=== PATIENT | female | born 1985 | race Caucasian/White ===

== ENCOUNTER 2019-09-13 07:07 | Day surgery (SDC) | payer BC ==
[2019-09-13 07:57] LABS: Absolute Lymphocytes (CBC) 2.3 K/uL (0.7-4.9); Basophils % 0.8 % (0-1.3); Hematocrit 41.8 % (36.0-45.0); Lymphocytes % 21.2 % (15.3-44.8); MPV 9.4 fL (7.6-11.3)
[2019-09-13] MEDS ORDERED: Ringers Lactate 1,000 ML IV ONE (07:58)
[2019-09-13] MEDS ORDERED: CEFAZOLIN/SWI 1gm 1 GM/10 ML SYR ONE (07:59)
[2019-09-13] MEDS ORDERED: BUPIVACAINE 0.5% PF 10 ML VIAL ONE (08:08)
--- NOTE | 2019-09-13 09:29 | RAD REPORT ---
EXAM DESCRIPTION: US - BREAST/AXILLA, LIMITED - 09/13/2019 8:29 am CLINICAL HISTORY: Breast pain, right breast abscess, pre-surgical localization COMPARISON: None FINDINGS: Limited right breast sonography was performed. Exam was performed to willy the skin surface overlying the right breast abscess. Examination spanned the upper right breast. Examination showed extensive hypoechoic tissues throughou t the upper right breast. This band the 10 o'clock- 2 o'clock region of the upper right breast. Infer ior extent was at the level of the nipple with the superior extent 6-8 cm superiorly. Outer margins o f the infectious/inflammatory breast changes were noted. In the 1- 2 o'clock position skin was marked noting areas of small abscess that extended to the skin surface. Findings and skin marking procedure discussed with the referring physician prior to surgery. IMPRESSION: Limited right breast sonographic evaluation for skin marking of breast abscess drainage.
[2019-09-13] MEDS ORDERED: LIDOCAINE 2% MPF 5 ML VIAL ONE (10:04)
[2019-09-13] MEDS ORDERED: MIDAZOLAM HCL 2 MG/2 ML INJ ONE (10:04)
[2019-09-13] MEDS ORDERED: dexAMETHasone 10 MG/ML VIAL ONE (10:04)
[2019-09-13] MEDS ORDERED: propofoL 200 MG/20 ML VIAL IV ONE (10:04)
[2019-09-13] MEDS ORDERED: ONDANSETRON 4 MG/2 ML VIAL ONE (10:04)
[2019-09-13] MEDS ORDERED: FENTANYL CITR 100 MCG/2 ML ONE (10:04)
[2019-09-13 13:14] VITALS: BP 132/77; TEMP 96.4; O2SAT 98
--- NOTE | 2019-09-13 22:19 | OP ---
Date of Procedure: 09/13/2019 Surgeon: Doug Mahajan MD Preoperative Diagnosis: Right breast abscess x2. Postoperative Diagnosis: Right breast abscess x2 with hard indurated area on the right breast. Procedure Performed: Incision and drainage and debridement right breast abscess x2. An excisional b iopsy of the right breast mass with frozen section. Estimated Blood Loss: Minimal. Specimen: Culture and sensitivity of the fluid and biopsy of the hard mass frozen section revealed i nflammatory tissue. No evidence of carcinoma. Finding: As above. Anesthesia: General. Complications: None. Disposition: Patient tolerated the procedure, was in stable condition and taken to Recovery in good general condition. Procedure In Detail: Patient was brought to the OR and placed in supine position. General anesthesi a was begun. Patient was prepped and draped in usual sterile fashion. Patient had been preoperative ly marked by ultrasound and 2 areas where there were suspected fluid. Marcaine 0.5% was infiltrated l ocally and then 15-blade was used to make a 2.5 cm incision on both areas where the abscess was suspe cted. I went deep down into that area. I was not able to identify any purulence. There was some se salvador fluid present. The surrounding tissue was very hard, did an incisional biopsy. A 1 cm mass was removed and sent to Pathology for frozen section, which revealed inflammatory tissue. No evidence o f carcinoma. Wound irrigated. Bleeding controlled with cautery and then the skin was loosely closed w ith 4-0 nylon and then sterile dressing was applied. Patient was awakened and taken to Recovery in g ood general condition. Discharge Note: The patient will go to Day Surgery, and home when stable. Disposition: Home. Condition: Stable. Discharge Instructions: Resume home medications and diet. Activity as tolerated. No heavy lifting. Remove outer dressing in 2 days. Shower. Keep wound clean and dry. Follow up in my office in 1 w resighini. Call for appointment. Tylenol No. 3 one tablet p.o. q.4. p.r.n. pain. Augmentin 875 p.o. q.12 . /MODL Voice ID: [id number] Report ID: [id number]
== END 2019-09-13 11:02 | disposition home or self-care (01) ==
LOC: OR 07:07
PROVIDERS: ATTEND Surgery
PROC: 0H9T0ZZ Drainage of Right Breast, Open Approach (ICD-10-PCS; principal; 2019-09-13 09:30)
DX: N61.1 Abscess of the breast and nipple (principal); N63.10 Unspecified lump in the right breast, unspecified quadrant; F17.200 Nicotine dependence, unspecified, uncomplicated; Z80.3 Family history of malignant neoplasm of breast; Z80.49 Family history of malignant neoplasm of other genital organs; Z83.3 Family history of diabetes mellitus; Z82.3 Family history of stroke; Z82.0 Family history of epilepsy and other diseases of the nervous system
CPT/HCPCS: 10061; 87070; 85025; 36415; 87205 ×2; 81025; 88331; 88332; 88305; 87075; 87077; 87186; 76642; J2704; J2250; J3010; J1100; J0690; J7120; J2405

== ENCOUNTER 2020-04-03 16:27 | Emergency (ER) | payer BC ==
--- NOTE | 2020-04-03 16:46 | EDPHYS ---
Physician Documentation [facility] Name: Patricia Fall Age: 34 yrs Sex: Female : 1985 Arrival Date: 04/03/2020 Time: 16:31 Bed 20 Private MD: ED Physician Ayaka Ibarra HPI: 04/03 16:43 This 34 yrs old Female presents to ER via Unassigned with complaints of kb Infection. 16:43 Pt states her boyfriend got diagnosed with a STI today and told her she needed to get kb treatment. Denies any symptoms including vaginal discharge/discomfort or dysuria. . Onset: The symptoms/episode began/occurred today. The patient has not experienced similar symptoms in the past. The patient has not recently seen a physician. - Social history:: Smoking status: . ROS: 16:44 Constitutional: Negative for fever, chills, and weight loss, Cardiovascular: Negative kb for chest pain, palpitations, and edema, Respiratory: Negative for shortness of breath, cough, wheezing, and pleuritic chest pain, Abdomen/GI: Negative for abdominal pain, nausea, vomiting, diarrhea, and constipation, Back: Negative for injury and pain, MS/Extremity: Negative for injury and deformity, Skin: Negative for injury, rash, and discoloration, Neuro: Negative for headache, weakness, numbness, tingling, and seizure. Exam: 16:44 Constitutional: This is a well developed, well nourished patient who is awake, alert, kb and in no acute distress. Head/Face: Normocephalic, atraumatic. Chest/axilla: Normal chest wall appearance and motion. Nontender with no deformity. No lesions are appreciated. Cardiovascular: Regular rate and rhythm with a normal S1 and S2. No gallops, murmurs, or rubs. Normal PMI, no JVD. No pulse deficits. Respiratory: Lungs have equal breath sounds bilaterally, clear to auscultation and percussion. No rales, rhonchi or wheezes noted. No increased work of breathing, no retractions or nasal flaring. Abdomen/GI: Soft, non-tender, with normal bowel sounds. No distension or tympany. No guarding or rebound. No evidence of tenderness throughout. Skin: Warm, dry with normal turgor. Normal color with no rashes, no lesions, and no evidence of cellulitis. MS/ Extremity: Pulses equal, no cyanosis. Neurovascular intact. Full, normal range of motion. Neuro: Awake and alert, GCS 15, oriented to person, place, time, and situation. Cranial nerves II-XII grossly intact. Motor strength 5/5 in all extremities. Sensory grossly intact. Cerebellar exam normal. Normal gait. Vital Signs: 16:43 BP 126 / 84; Pulse 86; Resp 16; Temp 98.1; Pulse Ox 99% ; sv 16:50 BP 124 / 89 LA (/reg); Pulse 76; Pulse Ox 100% on R/A; jp3 MDM: 16:37 Patient medically screened. kb 16:42 Data reviewed: vital signs, nurses notes. Data interpreted: Pulse oximetry: on room air kb is 100 %. Interpretation: normal. Counseling: I had a detailed discussion with the patient and/or guardian regarding: the historical points, exam findings, and any diagnostic results supporting the discharge/admit diagnosis, the need for outpatient follow up, an OB/Gyne specialist, to return to the emergency department if symptoms worsen or persist or if there are any questions or concerns that arise at home. Administered Medications: 16:53 Drug: Zithromax 1 grams Route: PO; sv 17:15 Follow up: Response: No adverse reaction sv 16:53 Drug: Rocephin (cefTRIAXone) 250 mg Route: IM; Site: left gluteus; sv 17:15 Follow up: Response: No adverse reaction sv Disposition: 04/03/20 16:45 Discharged to Home. Impression: Contact with and (suspected) exposure to infections with a predominantly sexual mode of transmission. - Condition is Stable. - Discharge Instructions: Sexually Transmitted Disease, [id number]. - Medication Reconciliation Form, Thank You Letter, Antibiotic Education, Prescription Opioid Use form. - Follow up: Emergency Department; When: As needed; Reason: Worsening of condition. Follow up: Private Physician; When: 2 - 3 days; Reason: Recheck today's complaints, Continuance of care, Re-evaluation by your physician. Signatures: Teetee Fisher, ROSSY[employer] PREPARATION DEPARTMENT SUPERVISOR-Virginie Grajeda RN RN sv Corrections: (The following items were deleted from the chart) 17:15 16:45 04/03/2020 16:45 Discharged to Home. Impression: Contact with and (suspected) sv exposure to infections with a predominantly sexual mode of transmission. Condition is Stable. Discharge Instructions: Sexually Transmitted Disease, [id number]. Forms are Medication Reconciliation Form, Thank You Letter, Antibiotic Education, Prescription Opioid Use. Follow up: Emergency Department; When: As needed; Reason: Worsening of condition. Follow up: Private Physician; When: 2 - 3 days; Reason: Recheck today's complaints, Continuance of care, Re-evaluation by your physician. kb
--- NOTE | 2020-04-03 16:46 | ER ---
Nurse's Notes [facility] Name: Patricia Fall Age: 34 yrs Sex: Female : 1985 Arrival Date: 04/03/2020 Time: 16:31 Bed 20 Private MD: Diagnosis: Contact with and (suspected) exposure to infections with a predominantly sexual mode of transmission Presentation: 04/03 16:42 Chief complaint: Patient states: Possible STI exposure. Pt has no complaints at this ss time. Coronavirus screen: Client denies travel out of the [place] in the last 14 days. Ebola Screen: Patient denies exposure to infectious person. Patient denies travel to an Ebola-affected area in the 21 days before illness onset. Risk Assessment: Do you want to hurt yourself or someone else? Patient reports no desire to harm self or others. Onset of symptoms is unknown. 16:42 Method Of Arrival: Ambulatory ss 16:42 Acuity: FREDDIE 4 ss 16:50 Initial Sepsis Screen: Does the patient meet any 2 criteria? No. Patient's initial sv sepsis screen is negative. Does the patient have a suspected source of infection? No. Patient's initial sepsis screen is negative. - Social history:: Smoking status: . Screenin:38 Abuse screen: Denies threats or abuse. Denies injuries from another. Nutritional sv screening: No deficits noted. Tuberculosis screening: No symptoms or risk factors identified. Fall Risk None identified. Assessment: 16:50 General: Appears in no apparent distress. comfortable, well groomed, well developed, sv Behavior is calm, cooperative, appropriate for age. Pain: Denies pain. Neuro: Level of Consciousness is awake, alert, obeys commands, Oriented to person, place, time, situation, Moves all extremities. Full function Gait is steady, Speech is normal. Respiratory: Airway is patent Respiratory effort is even, unlabored, Respiratory pattern is regular, symmetrical. Derm: Skin is pink, warm \T\ dry. Vital Signs: 16:43 BP 126 / 84; Pulse 86; Resp 16; Temp 98.1; Pulse Ox 99% ; sv 16:50 BP 124 / 89 LA (/reg); Pulse 76; Pulse Ox 100% on R/A; jp3 ED Course: 16:31 Patient arrived in ED. mr 16:34 Teetee Fisher F[facility]-C [facility]. kb 16:34 Ayaka Ibarra MD is Attending Physician. kb 16:38 Virginie Tong, RN is Primary Nurse. sv 16:38 Nurse Practitioner and/or Physician Fancy Wire Drawer to see patient. sv 16:38 Patient has correct armband on for positive identification. Bed in low position. Call sv light in reach. Door closed. Head of bed elevated. 16:43 Triage completed. ss 16:50 Arm band placed on. sv 17:15 No provider procedures requiring assistance completed. Patient did not have IV access sv during this emergency room visit. Administered Medications: 16:53 Drug: Zithromax 1 grams Route: PO; sv 17:15 Follow up: Response: No adverse reaction sv 16:53 Drug: Rocephin (cefTRIAXone) 250 mg Route: IM; Site: left gluteus; sv 17:15 Follow up: Response: No adverse reaction sv Outcome: 16:45 Discharge ordered by MD. kb 17:15 Patient left the ED. sv 17:15 Discharged to home ambulatory. sv 17:15 Condition: stable 17:15 Discharge instructions given to patient, Instructed on discharge instructions, follow up and referral plans. Demonstrated understanding of instructions, follow-up care. Signatures: Teetee Fisher FNP-C CAFETERIA HELPER-Ckb Virginie Tong, RN RN Sandy Beauchamp [place], CAROLE LAM Sriram Butts jp3
[2020-04-03] MEDS ORDERED: LIDOCAINE 1% MPF 2 ML AMPULE ONE (16:57)
[2020-04-03] MEDS ORDERED: CEFTRIAXONE 250 MG/VIAL ONE (16:57)
[2020-04-03] MEDS ORDERED: AZITHROMYCIN 250 MG TAB ONE (16:57)
[2020-04-03 17:20] VITALS: TEMP 98.1
[2020-04-03 17:21] VITALS: BP 124/89; O2SAT 100
== END 2020-04-03 17:15 | disposition home or self-care (01) ==
LOC: ER 16:27
DX: Z20.2 Contact with and (suspected) exposure to infections with a predominantly sexual mode of transmission (principal)
CPT/HCPCS: 96372; 99283; J2001; J0696